=== PATIENT | male | born 1955 | race Hispanic/Latino ===

== ENCOUNTER → 2018-10-25 | Day surgery (SDC) | payer OTHER ==
[~2018-10-25] MED LIST: LANTUS 3ML100 UNITS/; LIDOCAINE HCL 2% LOCAL INJ 5 ML SDV VIAL INJ ONE; LISINOPRIL10 MG PO; METFORMIN HCL850 MG PO; MIDAZOLAM HCL 2 MG/2 ML VIAL ONE; OMEPRAZOLE40 MG; PROPOFOL IV EMULSION 10 MG/ML 50 ML VIAL ONE
--- OUTSIDE RECORDS SUMMARY | 2018-10-25 06:27 | XMS REPORT ---
Author Author [facility] Address Unknown Phone Unavailable Care Team Providers Care Production Administrator Name Role Phone Unavailable Unavailable Problems This patient has no known problems. Allergies, Adverse Reactions, Alerts This patient has no known allergies or adverse reactions. Medications This patient has no known medications. Encounters Start Date/Time End Date/Time Encounter Type Admission Type Attending [facility] Facility Care Department Encounter ID 2017-09-26 00:00:00 2017-09-26 00:00:[address] [facility] [id number] 2017-08-23 00:00:00 2017-08-23 00:00:[address] [facility] [id number] 2017-07-11 14:27:58 2017-07-11 14:27:[address] [facility] [id number] 2017-07-06 08:30:56 2017-07-06 08:30:[address] [facility] [id number] 2017-05-16 13:18:41 2017-05-16 13:18:[address] [facility] [id number]
[2018-10-25 10:30] VITALS: BP 100/54
--- NOTE | 2018-10-25 13:29 | Operative Report ---
DATE OF PROCEDURE: 10/25/2018 SURGEON: Tai Masterson MD PROCEDURES: Esophagogastroduodenoscopy with esophageal dilatation and biopsies and a colonoscopy with polypectomy and biopsies. INDICATIONS FOR EGD: Dysphagia, history of heartburn, indigestion. MEDICATION: The patient was done under MAC. Please see anesthesiologist's note. DESCRIPTION OF PROCEDURE: With the patient in the left lateral decubitus position, a flexible fiberoptic Olympus gastroscope was introduced into the esophagus under direct visualization without any difficulty. There were some scattered minute nodules noted in the esophagus, biopsies were obtained. There was some patchy erythema noted in distal esophagus. A mild stricture was noted. The GE junction was dilated to size 52-Divehi Elena. The scope was then advanced with ease into the stomach and mucosa overlying the antrum and the body revealed some patchy intense erythema and moderate edema and biopsies were obtained and sent to stain for H pylori. The pylorus was of normal contour and shape, it was intubated with ease and the scope was advanced all the way to the second portion of the duodenum. Biopsies were obtained from the proximal second portion and the duodenal bulb just to proximal second portion to rule out sprue. The scope was then withdrawn back into the stomach and retroflexed and mucosa overlying the fundus appeared to be within normal limits. A minute nodule was noted just below the cardia and that was biopsied. The scope was then straightened out, it was subsequently withdrawn. The patient tolerated the procedure well. IMPRESSION: 1. Scattered minute nodule in mid esophagus, biopsied. 2. Distal esophagitis, mild. 3. Esophagus dilated to size 52-Divehi Elena. 4. Minute nodule just below cardia, biopsied. 5. Gastritis, biopsied. Biopsies sent to stain for Helicobacter pylori. PLAN: Follow up histology. Continue Protonix 40 mg one p.o. q.a.m. a.c. INDICATIONS FOR COLONOSCOPY: Surveillance colonoscopy, personal history of colon polyps, diarrhea. DESCRIPTION OF PROCEDURE: The patient was then turned around. After adequate lubrication of the anal canal, a flexible fiberoptic Olympus colonoscope was inserted into the rectum with ease and advanced all the way to the cecum. Prep overall was suboptimal to poor with [id number] amount of retained fecal material in the colon. Whatever was visualized, the mucosa overlying the cecum appeared to be within normal limits. The ileocecal valve was intubated and the scope was advanced into the terminal ileum. Biopsies were obtained. The scope was then withdrawn back into the colon. It was then withdrawn slowly and an approximately 2 cm submucosal lesion was noted in the proximal ascending colon that was biopsied. Whatever was visualized, the mucosa overlying the ascending and transverse revealed some patchy areas of intense erythema and biopsies were obtained. A minute polyp was hot biopsied from the descending colon. Whatever was visualized of the rest of the descending, sigmoid, and rectum revealed similar mild inflammatory findings and biopsies were obtained. The scope was then retroflexed into the distal rectum and some small internal hemorrhoids were noted, none of which was actively bleeding. The scope was then straightened out, it was subsequently withdrawn after securing an adequate stool specimen that was sent for the appropriate stool studies. The patient tolerated procedure well. IMPRESSION: 1. Suboptimal to poor prep. 2. Approximate 2 cm submucosal lesion in proximal ascending colon, biopsied. 3. Mild patchy colitis. 4. Descending colon polyp, hot biopsied. 5. Internal hemorrhoids, none actively bleeding. PLAN: Follow up histology. Follow up stool studies. Initiate VSL#3 one p.o. daily and Bentyl 10 mg one p.o. t.i.d. The patient will need a repeat colonoscopy after a better prep. aTi Masterson MD [facility] [place][id number] cc: Marisabel Laura MD
[2018-10-25 13:44] LABS: C DIFFICILE TOXIN A&B AMP PROB NEGATIVE (NEGATIVE); WBC,FECAL (FECAL LACTOFERRIN) NEGATIVE (NEGATIVE)
== END | disposition home or self-care (01) ==
LOC: OR 06:25
PROVIDERS: ATTEND Internal Medicine Gastroenterology
DX: K52.9 Noninfective gastroenteritis and colitis, unspecified (principal); D12.4 Benign neoplasm of descending colon; K22.2 Esophageal obstruction; K29.70 Gastritis, unspecified, without bleeding; K20.9 Esophagitis, unspecified; K22.8 Other specified diseases of esophagus; K21.9 Gastro-esophageal reflux disease without esophagitis; K31.89 Other diseases of stomach and duodenum; K63.9 Disease of intestine, unspecified; K64.8 Other hemorrhoids; I10 Essential (primary) hypertension; E11.9 Type 2 diabetes mellitus without complications; H54.62 Unqualified visual loss, left eye, normal vision right eye; Z01.810 Encounter for preprocedural cardiovascular examination; Z79.84 Long term (current) use of oral hypoglycemic drugs
CPT/HCPCS: 36415; 43239; 43450; 45380; 45384; 82948; 83630; 83993; 87045; 87177; 87328; 87493; 93005; J2001; J2250; J2704; 45378

== ENCOUNTER → 2019-03-31 | Day surgery (SDC) | payer OTHER ==
[~2019-03-31] MED LIST changes: +EPHEDRINE SULFATE INJ 50 MG/10 ML SYR ONE; +FENTANYL CITRATE/PF 100MCG/2 ML INJ ONE; +GLUCAGON FOR INJ 1 MG VIAL ONE; +KETAMINE HCL INJ 50 MG/ML 10 ML VIAL ONE; -LANTUS 3ML100 UNITS/; +LANTUS 3ML100 UNITS/ SQ; -MIDAZOLAM HCL 2 MG/2 ML VIAL ONE
[2019-03-31 09:40] VITALS: BP 136/70
--- NOTE | 2019-03-31 09:46 | Operative Report ---
DATE OF PROCEDURE: 03/31/2019 SURGEON: Tai Masterson MD PROCEDURE: Colonoscopy with polypectomy. INDICATIONS FOR PROCEDURE: Surveillance colonoscopy, personal history of colon polyps, suboptimal prep on previous colonoscopy. MEDICATION: The patient was done under MAC. Please see anesthesiologist's note. PROCEDURE IN DETAIL: With the patient in left lateral decubitus position, a flexible fiberoptic Olympus colonoscope was inserted into the rectum with ease and advanced all the way to the cecum. The scope was then withdrawn slowly. Mucosa overlying the cecum appeared to be within normal limits. One polyp was hot biopsied and site was hemoclipped in the distal ascending colon. Two polyps were encountered in the transverse colon. One was hot biopsied and the 2nd polyp was snared. In the descending colon one polyp was removed per snare electrocautery. The sigmoid and the rectum grossly appeared to be within normal limits. The scope was then retroflexed into the distal rectum and small internal hemorrhoids were noted, none of which was actively bleeding. The scope was then straightened out, it was subsequently withdrawn and the patient tolerated the procedure well. IMPRESSION: 1. Ascending colon polyp hot biopsied, site hemoclipped. 2. Transverse colon polyps x2, one snared and one hot biopsied. 3. Descending colon polyp snared. 4. Internal hemorrhoids, none actively bleeding. PLAN: Follow up histology. Initiate high-fiber, low-fat diet. Initiate high-fiber supplement. The patient might benefit from a followup colonoscopy in 3 to 5 years. Tai Masterson MD [facility] [place] /[id number] cc: Marisabel Laura MD
== END | disposition home or self-care (01) ==
LOC: OR 06:05
PROVIDERS: ATTEND Internal Medicine Gastroenterology
DX: K29.70 Gastritis, unspecified, without bleeding (principal); D12.2 Benign neoplasm of ascending colon; D12.4 Benign neoplasm of descending colon; D12.3 Benign neoplasm of transverse colon; I10 Essential (primary) hypertension; Z68.30 Body mass index [BMI] 30.0-30.9, adult; K29.60 Other gastritis without bleeding; K21.0 Gastro-esophageal reflux disease with esophagitis; E11.9 Type 2 diabetes mellitus without complications; K58.9 Irritable bowel syndrome, unspecified; K63.5 Polyp of colon; K64.8 Other hemorrhoids; Z79.4 Long term (current) use of insulin; Z01.810 Encounter for preprocedural cardiovascular examination
CPT/HCPCS: 36415; 45384; 45385; 82948; 93005; J1610; J2001; J2704; J3010

== ENCOUNTER 2022-07-05 15:50 | Emergency (ER) | payer MEDICARE, OTHER ==
[~2022-07-05] VITALS: Ht 167.6 cm; Wt 84.1 kg
[~2022-07-05 15:50] MED LIST changes: -EPHEDRINE SULFATE INJ 50 MG/10 ML SYR ONE; -FENTANYL CITRATE/PF 100MCG/2 ML INJ ONE; -GLUCAGON FOR INJ 1 MG VIAL ONE; -KETAMINE HCL INJ 50 MG/ML 10 ML VIAL ONE; -LIDOCAINE HCL 2% LOCAL INJ 5 ML SDV VIAL INJ ONE; -PROPOFOL IV EMULSION 10 MG/ML 50 ML VIAL ONE
[2022-07-05] MEDS ORDERED: KETOROLAC TROMETHAMINE 30 MG/ML VIAL IM STA (16:50)
[2022-07-05] MEDS ORDERED: NAPROSYN500 MG PO (16:51)
[2022-07-05] MEDS ORDERED: HYDROCODON-ACE1 EA11 PO (16:52)
== END 2022-07-05 17:05 | disposition home or self-care (01) ==
LOC: FSED 15:56
DX: M54.16 Radiculopathy, lumbar region (principal); M79.661 Pain in right lower leg; I10 Essential (primary) hypertension; E11.9 Type 2 diabetes mellitus without complications; E78.5 Hyperlipidemia, unspecified
CPT/HCPCS: 96372; 99283; J1885

== ENCOUNTER 2022-12-10 12:01 | Emergency (ER) | payer MEDICARE ==
[~2022-12-10] VITALS: Ht 167.6 cm; Wt 88.0 kg
[~2022-12-10 12:01] MED LIST changes: +HYDROCODON-ACE1 EA11 PO; +NAPROSYN500 MG PO
[2022-12-10] MEDS ORDERED: TAMSULOSIN HCL 0.4 MG CAP PO SCH (12:30)
[2022-12-10 16:26] VITALS: BP 134/84
== END 2022-12-10 16:30 | disposition home or self-care (01) ==
LOC: FSED 12:06
DX: S16.1XXA Strain of muscle, fascia and tendon at neck level, initial encounter (principal); S39.012A Strain of muscle, fascia and tendon of lower back, initial encounter; S80.12XA Contusion of left lower leg, initial encounter; V53.5XXA Driver of pick-up truck or van injured in collision with car, pick-up truck or van in traffic accident, initial encounter; Y92.488 Other paved roadways as the place of occurrence of the external cause; I10 Essential (primary) hypertension; E11.9 Type 2 diabetes mellitus without complications; E78.5 Hyperlipidemia, unspecified; E04.1 Nontoxic single thyroid nodule; M54.9 Dorsalgia, unspecified; G89.29 Other chronic pain
CPT/HCPCS: 71250; 72125; 72128; 72131; 99283